=== PATIENT | male | born 1950 | race Caucasian/White ===

== ENCOUNTER → 2017-05-22 05:00 | Outpatient (REF) | payer MEDICARE, SELFPAY ==
[2017-05-22 08:11] LABS: Hematocrit 30.4 % (40-54); Hemoglobin 9.7 g/dl (13.0-16.5); Mean Corp Hgb Conc 31.9 g/gl (32-36); Mean Corpuscular Hgb 28.2 pg (27.0-32.0); Mean Corpuscular Volume 88.4 fL (80-94); Mean Platelet Vol. 11.3 fl (6.2-12.0); Platelet Count 280 K/mm3 (150-450); RBC Distribution Width CV 14.9 % (11.6-14.6); RBC Distribution Width SD 48.5 fl (35.1-43.9); Red Blood Count 3.44 M/mm3 (4.6-6.2); White Blood Count 4.8 K/mm3 (4.4-11.0)
[2017-05-22 08:13] LABS: Scan Indicated on CBC? Y/N NO
== END ==
LOC: OLS.ACW300 05:00
PROVIDERS: Visit Provider Family Medicine
DX: J96.01 Acute respiratory failure with hypoxia (principal); K92.2 Gastrointestinal hemorrhage, unspecified; K64.9 Unspecified hemorrhoids; R41.82 Altered mental status, unspecified; R27.9 Unspecified lack of coordination; Z98.890 Other specified postprocedural states
CPT/HCPCS: 36415; 85027

== ENCOUNTER → 2017-06-05 05:00 | Outpatient (REF) | payer MEDICARE, SELFPAY ==
[2017-06-05 08:22] LABS: Hematocrit 36.7 % (40-54); Hemoglobin 11.5 g/dl (13.0-16.5); Mean Corp Hgb Conc 31.3 g/gl (32-36); Mean Corpuscular Volume 89.3 fL (80-94); Platelet Count 345 K/mm3 (150-450); RBC Distribution Width SD 51.4 fl (35.1-43.9); Red Blood Count 4.11 M/mm3 (4.6-6.2); White Blood Count 9.9 K/mm3 (4.4-11.0)
[2017-06-05 08:27] LABS: Scan Indicated on CBC? Y/N NO
== END ==
LOC: OLS.ACW300 05:00
PROVIDERS: Visit Provider Family Medicine
DX: Z98.890 Other specified postprocedural states (principal); J96.01 Acute respiratory failure with hypoxia; K92.2 Gastrointestinal hemorrhage, unspecified; K64.9 Unspecified hemorrhoids; R41.82 Altered mental status, unspecified; R27.9 Unspecified lack of coordination
CPT/HCPCS: 36415; 85027

== ENCOUNTER → 2017-10-04 05:00 | Outpatient (REF) | payer MEDICARE, SELFPAY ==
[2017-10-04 08:05] LABS: Hematocrit 41.7 % (40-54); Hemoglobin 13.2 g/dl (13.0-16.5); Mean Corp Hgb Conc 31.7 g/gl (32-36); Mean Corpuscular Hgb 28.3 pg (27.0-32.0); Mean Corpuscular Volume 89.5 fL (80-94); Mean Platelet Vol. 12.1 fl (6.2-12.0); Platelet Count 148 K/mm3 (150-450); RBC Distribution Width CV 14.9 % (11.6-14.6); RBC Distribution Width SD 48.3 fl (35.1-43.9); Red Blood Count 4.66 M/mm3 (4.6-6.2); White Blood Count 4.9 K/mm3 (4.4-11.0)
[2017-10-04 08:08] LABS: Scan Indicated on CBC? Y/N NO
[2017-10-04 08:33] LABS: ALB/GLOB Ratio 1.1 RATIO (0.9-2.4); AST(SGOT) 18 U/L (15-37); Alanine Aminotransfer ALT/SGPT 30 U/L (16-61); Albumin, Serum 3.5 g/dL (3.2-5.0); Alkaline Phosphatase 65 U/L (45-117); Anion Gap 4 (5-15); BUN 24 mg/dL (7-18); BUN/Creat Ratio 15.9 RATIO (10-20); Calcium,Total 8.8 mg/dL (8.5-10.1); Chloride 111 mmol/L (98-107); Creatinine, Serum 1.51 mg/dL (0.70-1.30); EST Glomerular Filtration Rate 49 mL/min (>60); Est Glom Filt Rate - Afr Amer 60 mL/min (>60); Globulin 3.1 g/dL (2.2-4.2); Glucose 89 mg/dL (74-106); Potassium 4.3 mmol/L (3.5-5.1); Protein, Total 6.6 g/dL (6.4-8.2); Sodium Level 143 mmol/L (136-145); Thyroid Stim Hormone (TSH) 4.27 uIU/mL (0.358-3.74)
== END ==
LOC: OLS.ACW300 05:00
PROVIDERS: Visit Provider Family Medicine
DX: Z48.815 Encounter for surgical aftercare following surgery on the digestive system (principal); R41.82 Altered mental status, unspecified; K92.2 Gastrointestinal hemorrhage, unspecified; K64.9 Unspecified hemorrhoids
CPT/HCPCS: 36415; 80053; 84443; 85027

== ENCOUNTER → 2017-11-14 05:30 | Outpatient (REF) | payer MEDICARE, SELFPAY ==
[2017-11-14 08:50] LABS: Absolute Lymphocyte Count 1.26 X10^3/ul (0.83-4.51); Basophil# 0.02 X10^3/uL; Basophil% 0.4 % (0-1); Eosinophil# 0.38 X10^3/uL; Eosinophils% 7.3 % (0-5); Hematocrit 37.9 % (40-54); Hemoglobin 11.7 g/dl (13.0-16.5); Lymphocyte # 1.26 X10^3/ul (4.0); Lymphocyte % 24.3 % (19-41); Mean Corp Hgb Conc 30.9 g/gl (32-36); Mean Corpuscular Hgb 28.6 pg (27.0-32.0); Mean Corpuscular Volume 92.7 fL (80-94); Monocyte# 0.54 X10^3/uL; Monocyte% 10.4 % (0-10); Neutrophil # 2.98 X10^3/uL (2.7-7.7); Neutrophil % 57.4 % (47-70); POSITIVE COUNT NO; POSITIVE DIFFERENTIAL NO; POSITIVE MORPHOLOGY NO; Platelet Count 151 K/mm3 (150-450); RBC Distribution Width CV 16.4 % (11.6-14.6); RBC Distribution Width SD 55.5 fl (35.1-43.9); Red Blood Count 4.09 M/mm3 (4.6-6.2); White Blood Count 5.2 K/mm3 (4.4-11.0)
[2017-11-14 09:05] LABS: AST(SGOT) 13 U/L (15-37); Alanine Aminotransfer ALT/SGPT 21 U/L (16-61); Albumin, Serum 3.3 g/dL (3.2-5.0); Alkaline Phosphatase 65 U/L (45-117); Anion Gap 5 (5-15); BUN 16 mg/dL (7-18); BUN/Creat Ratio 12.6 RATIO (10-20); Calcium,Total 8.4 mg/dL (8.5-10.1); Chloride 107 mmol/L (98-107); Creatinine, Serum 1.27 mg/dL (0.70-1.30); EST Glomerular Filtration Rate 60 mL/min (>60); Est Glom Filt Rate - Afr Amer 73 mL/min (>60); Globulin 3.4 g/dL (2.2-4.2); Glucose 79 mg/dL (74-106); Potassium 4.1 mmol/L (3.5-5.1); Protein, Total 6.7 g/dL (6.4-8.2); Sodium Level 140 mmol/L (136-145); T4 Total, Thyroxin 5.9 ug/dL (4.5-12.1); Thyroid Stim Hormone (TSH) 9.82 uIU/mL (0.358-3.74)
[2017-11-14 09:12] LABS: T3 Total - Triiodothyronine 0.87 ng/mL (0.6-1.81)
== END ==
LOC: OLS.ACW300 05:30
PROVIDERS: Visit Provider Family Medicine
DX: E03.9 Hypothyroidism, unspecified (principal)
CPT/HCPCS: 36415; 80053; 84436; 84443; 84480; 85025

== ENCOUNTER → 2018-10-07 | Outpatient (REF) | payer MEDICARE, SELFPAY ==
[2018-10-07 17:02] LABS: Hematocrit 38.8 % (40-54); Hemoglobin 12.9 g/dl (13.0-16.5); Mean Corp Hgb Conc 33.2 g/gl (32-36); Mean Corpuscular Hgb 28.5 pg (27.0-32.0); Mean Corpuscular Volume 85.8 fL (80-94); Mean Platelet Vol. 10.2 fl (6.2-12.0); Platelet Count 221 K/mm3 (150-450); RBC Distribution Width CV 14.3 % (11.6-14.6); RBC Distribution Width SD 45.1 fl (35.1-43.9); Red Blood Count 4.52 M/mm3 (4.6-6.2); White Blood Count 8.2 K/mm3 (4.4-11.0)
[2018-10-07 17:03] LABS: Scan Indicated on CBC? Y/N NO
[2018-10-07 17:15] LABS: ALB/GLOB Ratio 0.7 RATIO (0.9-2.4); AST(SGOT) 98 U/L (15-37); Alanine Aminotransfer ALT/SGPT 16 U/L (16-61); Albumin, Serum 3.1 g/dL (3.2-5.0); Alkaline Phosphatase 775 U/L (45-117); Anion Gap 10 (5-15); BUN 14 mg/dL (7-18); BUN/Creat Ratio 12.5 RATIO (10-20); Calcium,Total 8.8 mg/dL (8.5-10.1); Chloride 104 mmol/L (98-107); Creatinine, Serum 1.12 mg/dL (0.70-1.30); EST Glomerular Filtration Rate 69 mL/min (>60); Est Glom Filt Rate - Afr Amer 84 mL/min (>60); Globulin 4.2 g/dL (2.2-4.2); Glucose 97 mg/dL (74-106); Potassium 3.5 mmol/L (3.5-5.1); Protein, Total 7.3 g/dL (6.4-8.2); Sodium Level 139 mmol/L (136-145)
[2018-10-08 05:30] LABS: Amylase 42 U/L (25-115); Bilirubin, Direct 0.17 mg/dL (0.00-0.30); Lipase 179 U/L (73-393)
== END | disposition home or self-care (01) ==
LOC: OLS.ACW300 16:05
PROVIDERS: Visit Provider Family Medicine
DX: R41.82 Altered mental status, unspecified (principal); Z48.815 Encounter for surgical aftercare following surgery on the digestive system; K92.2 Gastrointestinal hemorrhage, unspecified; K64.9 Unspecified hemorrhoids
CPT/HCPCS: 36415; 80053; 82150; 82248; 83690; 85027

== ENCOUNTER → 2018-10-08 | Outpatient (REF) | payer MEDICARE, SELFPAY ==
[2018-10-10 17:16] LABS: Alkaline Phosphatase, Serum 691 IU/L (39-117); Bone Fraction 70 % (12-68); Liver Fraction 29 % (13-88)
[2018-10-14 12:50] LABS: Intestinal Fraction 1 % (0-18)
== END | disposition home or self-care (01) ==
LOC: OLS.ACW300 06:15
PROVIDERS: Visit Provider Family Medicine
DX: R41.82 Altered mental status, unspecified (principal); Z48.815 Encounter for surgical aftercare following surgery on the digestive system; K92.2 Gastrointestinal hemorrhage, unspecified; K64.9 Unspecified hemorrhoids
CPT/HCPCS: 36415; 84075; 84080

== ENCOUNTER → 2018-10-12 | Outpatient (REF) | payer SELFPAY ==
[2018-10-12 08:34] LABS: Hematocrit 37.3 % (40-54); Hemoglobin 12.4 g/dl (13.0-16.5); Mean Corp Hgb Conc 33.2 g/gl (32-36); Mean Corpuscular Hgb 27.8 pg (27.0-32.0); Mean Corpuscular Volume 83.6 fL (80-94); Mean Platelet Vol. 10.9 fl (6.2-12.0); Platelet Count 299 K/mm3 (150-450); RBC Distribution Width CV 14.6 % (11.6-14.6); RBC Distribution Width SD 43.9 fl (35.1-43.9); Red Blood Count 4.46 M/mm3 (4.6-6.2); White Blood Count 8.6 K/mm3 (4.4-11.0)
[2018-10-12 08:35] LABS: Scan Indicated on CBC? Y/N NO
[2018-10-12 08:36] LABS: Erythrocyte Sedimentation Rate 20 mm/hr (0-20)
[2018-10-12 08:54] LABS: ALB/GLOB Ratio 0.6 RATIO (0.9-2.4); AST(SGOT) 49 U/L (15-37); Alanine Aminotransfer ALT/SGPT 46 U/L (16-61); Albumin, Serum 2.7 g/dL (3.2-5.0); Alkaline Phosphatase 457 U/L (45-117); Amylase 42 U/L (25-115); Anion Gap 9 (5-15); BUN 14 mg/dL (7-18); BUN/Creat Ratio 13.1 RATIO (10-20); Chloride 102 mmol/L (98-107); Creatinine, Serum 1.07 mg/dL (0.70-1.30); EST Glomerular Filtration Rate 73 mL/min (>60); Est Glom Filt Rate - Afr Amer 88 mL/min (>60); Globulin 4.6 g/dL (2.2-4.2); Glucose 86 mg/dL (74-106); Lipase 193 U/L (73-393); Potassium 3.4 mmol/L (3.5-5.1); Protein, Total 7.3 g/dL (6.4-8.2); Sodium Level 136 mmol/L (136-145); Thyroid Stim Hormone (TSH) 9.18 uIU/mL (0.358-3.74)
== END | disposition home or self-care (01) ==
LOC: OLS.ACW300 06:00
PROVIDERS: Visit Provider Family Medicine
DX: R41.82 Altered mental status, unspecified (principal); Z48.815 Encounter for surgical aftercare following surgery on the digestive system; K92.2 Gastrointestinal hemorrhage, unspecified; K64.9 Unspecified hemorrhoids
CPT/HCPCS: 36415; 80053; 82150; 82533; 83690; 84443; 85027; 85652; 86140